=== PATIENT | female | born 1990 | race Two or more races ===

== ENCOUNTER 2025-02-19 19:46 | Emergency (ER) | payer MEDICAID ==
[~2025-02-19] VITALS: Ht 167.6 cm; Wt 59.0 kg
[2025-02-19] MEDS ORDERED: MAG HYDROX/AL HYDROX/SIMETH 30 ML UDC ONE (20:36)
[2025-02-19] MEDS ORDERED: ACETAMINOPHEN ES 500 MG TABLET ONE (20:37)
[2025-02-19] MEDS ORDERED: FAMOTIDINE (20 MG) 20 MG TABLET ONE (20:37)
[2025-02-19] MEDS ORDERED: ONDANSETRON 4 MG TAB.RAPDIS ONE (20:37)
[2025-02-19 20:43] LABS: PLATELET COUNT (AUTO) 297 K/uL (150-450); RED BLOOD CELL COUNT(AUTO) 4.01 MIL/uL (4.0-5.2); RED CELL DISTRIBUTION WIDTH 13.4 % (11.5-15.0); WHITE BLOOD COUNT (AUTO) 5.8 K/uL (4.3-11.0)
[2025-02-19] MEDS: MAG HYDROX/AL HYDROX/SIMETH 30 ML UDC PO ONE (20:50)
[2025-02-19] MEDS: ACETAMINOPHEN ES 500 MG TABLET PO ONE (20:50)
[2025-02-19] MEDS: FAMOTIDINE (20 MG) 20 MG TABLET PO ONE (20:50)
[2025-02-19] MEDS: ONDANSETRON 4 MG TAB.RAPDIS SL ONE (20:51)
[2025-02-19 20:55] LABS: CALCIUM, SERUM 9.1 mg/dL (8.5-10.1); CREATININE 0.8 mg/dL (0.6-1.3); SODIUM SERUM 137.0 mmol/L (136-145); UREA NITROGEN, BLOOD 8.0 mg/dL (7-18)
[2025-02-19 20:56] LABS: APPEARANCE,URINE CLEAR (CLEAR); BLOOD, URINE TRACE-INTA Ery/uL (NEGATIVE); LEUKOCYTE ESTERASE ,URINE NEGATIVE (NEGATIVE); NITRITE, URINE NEGATIVE (NEGATIVE); UGLUCOSE NEGATIVE (NEGATIVE)
[2025-02-19 21:00] LABS: ASPARTATE AMINOTRANSFERASE 13.0 U/L (15-37); TOTAL PROTEIN, SERUM 7.3 g/dL (6.4-8.2)
[2025-02-19 21:24] LABS: ADD URINE CULTURE YES
[2025-02-19 21:25] LABS: PREGNANCY TEST URINE QUAL NEGATIVE (NEGATIVE)
[2025-02-19] MEDS ORDERED: MAG-55 PO (21:29)
[2025-02-19] MEDS ORDERED: ONDA4TAB11 PO (21:29)
[2025-02-19] MEDS ORDERED: FAMO-131 PO (21:29)
[2025-02-19 21:49] VITALS: BP 107/70; TEMP 98.5; O2SAT 98
== END 2025-02-19 21:50 | disposition home or self-care (01) ==
LOC: ER 19:57
DX: R10.13 Epigastric pain (principal); R11.2 Nausea with vomiting, unspecified; F32.A Depression, unspecified; N89.8 Other specified noninflammatory disorders of vagina
CPT/HCPCS: 99284; 85025; 80048; 83690; 80076; 84703; 81001; 36415; Q0162; 87086-TC